=== PATIENT | male | born 1950 | race Caucasian/White ===

== ENCOUNTER → 2023-04-22 13:08 | Outpatient (REF) | payer MEDICARE, SELFPAY | LOC: RAD 13:08 | PROVIDERS: ATTENDING PHYSICIAN Anesthesiology; FAMILY PHYSICIAN Family Medicine | DX: M25.551 Pain in right hip (principal); M25.552 Pain in left hip | CPT/HCPCS: 73522 ==

== ENCOUNTER → 2023-06-30 06:38 | Day surgery (SDC) | payer MEDICARE, SELFPAY | LOC: GI 06:38 | PROVIDERS: ATTENDING PHYSICIAN Internal Medicine Gastroenterology | DX: Z12.11 Encounter for screening for malignant neoplasm of colon (principal); D12.2 Benign neoplasm of ascending colon; D12.4 Benign neoplasm of descending colon; K55.20 Angiodysplasia of colon without hemorrhage; K57.30 Diverticulosis of large intestine without perforation or abscess without bleeding; K64.8 Other hemorrhoids; Z86.010 Personal history of colon polyps | CPT/HCPCS: 45385; 45380; 88305 ==

== ENCOUNTER → 2024-04-26 14:04 | Outpatient (REF) | payer MEDICARE, SELFPAY | LOC: HWRAD 14:04 | PROVIDERS: ATTENDING PHYSICIAN Psychiatry & Neurology Neurology; FAMILY PHYSICIAN Family Medicine | DX: R41.82 Altered mental status, unspecified (principal) | CPT/HCPCS: 70450 ==

== ENCOUNTER → 2024-08-06 11:32 | Outpatient (REF) | payer MEDICARE, SELFPAY | LOC: PAVMRI 11:32 | PROVIDERS: ATTENDING PHYSICIAN Family Medicine | DX: H53.9 Unspecified visual disturbance (principal); R42 Dizziness and giddiness | CPT/HCPCS: 70544; 70553; A9575 ==